=== PATIENT | male | born 1975 | race Caucasian/White ===

== ENCOUNTER 2017-06-22 09:54 | Inpatient (IN) | payer OTHER ==
[2017-06-22 10:18] VITALS: BMI 27.3
--- NOTE | 2017-06-22 12:19 | HP ---
CIWA Score - CIWA Score Nausea/Vomitin-No Nausea/No Vomiting Muscle Tremors: 4-Moderate,w/Arms Extend Anxiety: 4-Mod. Anxious/Guarded Agitation: 4-Moderately Restless Paroxysmal Sweats: 3 Orientation: 0-Oriented Tacttile Disturbances: 0-None Auditory Disturbances: 0-None Visual Disturbances: 0-None Headache: 1-Very Mild CIWA-Ar Total Score: 16 Admission ROS BHS - HPI Chief Complaint: I have problem and need help. Allergies/Adverse Reactions: Allergies Allergy/AdvReac Type Severity Reaction Status Date / Time No Known Allergies Allergy Verified 06/22/17 10:33 History of Present Illness: pt is a 41yr old male with a history of alcohol dependence only seeking detox for treatment. Exam Limitations: No Limitations - Ebola screening Have you traveled outside of the country in the last 21 days: No Have you had contact with anyone from an Ebola affected area: No Have you been sick,other than usual withdrawal symptoms: No Do you have a fever: No - Review of Systems Constitutional: Chills, Diaphoresis, Night Sweats EENT: reports: No Symptoms Reported Respiratory: reports: No Symptoms reported Cardiac: reports: Syncope (blackout) GI: reports: Poor Appetite, Poor Fluid Intake : reports: No Symptoms Reported Musculoskeletal: reports: No Symptoms Reported Integumentary: reports: Flushing, Sweating Neuro: reports: Tingling, Tremors Endocrine: reports: Excessive Sweating, Flushing, Intolerance to Heat Hematology: reports: No Symptoms Reported Psychiatric: reports: Judgement Intact, Mood/Affect Appropiate, Orientated x3, Agitated, Anxious Other Systems: Reviewed and Negative Patient History - Patient Medical History Hx Anemia: No Hx Asthma: No Hx Chronic Obstructive Pulmonary Disease (COPD): No Hx Cancer: No Hx Cardiac Disorders: No Hx Congestive Heart Failure: No Hx Hypertension: No Hx Hypercholesterolemia: No Hx Pacemaker: No HX Cerebrovascular Accident: No Hx Seizures: No Hx Dementia: No Hx Diabetes: No Hx Gastrointestinal Disorders: No Hx Liver Disease: No Hx Genitourinary Disorders: No Hx Sexually Transmitted Disorders: No Hx Renal Disease (ESRD): No Hx Thyroid Disease: No Hx Human Immunodeficiency Virus (HIV): No (negative) Hx Hepatitis C: No (negative) Hx Depression: Yes Hx Suicide Attempt: No Hx Bipolar Disorder: No Hx Schizophrenia: No - Patient Surgical History Past Surgical History: Yes Other Surgical History: R hand tendon repair x3 in 2005 Anesthesia Reaction: No - PPD History Previous Implant?: Yes Documented Results: Negative w/o proof Implanted On Prior [facility] Admission?: No PPD to be Administered?: Yes - Reproductive History Patient is a Female of Child Bearing Age (11 -55 yrs old): No - Smoking Cessation Smoking history: Never smoked Hx Chewing Tobacco Use: No Initiated information on smoking cessation: No - Substance & Tx. History Hx Alcohol Use: Yes Hx Substance Use: No Substance Use Type: Alcohol Hx Substance Use Treatment: Yes (last detox 2005 in [place] ) - Substances Abused Alcohol Route: Oral Frequency: 3-6 times per week Amount used: 1 pint vodka Age of first use: 16 Date of Last Use: 06/20/17 Family Disease History - Family Disease History Family History: Denies Admission Physical Exam [facility] - Vital Signs Vital Signs: Vital Signs - 24 hr 06/22/17 10:15 Temperature 97.1 F L Pulse Rate 62 Respiratory 20 Rate Blood Pressure 143/84 - Physical General Appearance: Yes: Appropriately Dressed, Moderate Distress, Tremorous, Irritable, Sweating, Anxious HEENTM: Yes: Hearing grossly Normal, Normal Voice Respiratory: Yes: Lungs Clear, Normal Breath Sounds, No Respiratory Distress Neck: Yes: Within Normal Limits Breast: Yes: Within Normal Limits Cardiology: Yes: Regular Rhythm, Regular Rate, S1, S2 Abdominal: Yes: Normal Bowel Sounds, Non Tender, Soft Genitourinary: Yes: Within Normal Limits Back: Yes: Normal Inspection Musculoskeletal: Yes: full range of Motion Extremities: Yes: Normal Capillary Refill, Tremors Neurological: Yes: Fully Oriented, Alert, Normal Response Integumentary: Yes: Normal Color, Diaphoresis Lymphatic: Yes: Within Normal Limits - Diagnostic (1) Alcohol dependence with uncomplicated withdrawal Current Visit: Yes Status: Chronic Cleared for Admission [facility] - Detox or Rehab [facility] Level of Care: Medically Managed Detox Regimen/Protocol: Librium [facility] Breath Alcohol Content Breath Alcohol Content: 0 Urine Drug Screen - Results Drug Screen Negative: Yes
[2017-06-22] MEDS ORDERED: MAGNESIUM HYDROX 2400MG/30ML ORAL SUSPENSION 30 ML CUP PO PRN (12:26)
[2017-06-22] MEDS ORDERED: guaiFENesin/D-METHORPHAN HB 10 ML UNIT-DOSE CUPS PO PRN (12:26)
[2017-06-22] MEDS ORDERED: MENTHOL/PHENOL 1 EACH UD MM PRN (12:26)
[2017-06-22] MEDS ORDERED: MAG HYDROX/AL HYDROX/SIMETH 30 ML UNIT-DOSE CUP PO PRN (12:26)
[2017-06-22] MEDS ORDERED: chlordiazePOXIDE HCL 25 MG CAPSULE PO PRN (12:26)
[2017-06-22] MEDS ORDERED: P-EPHED 60MG/TRIPROLIDI 2.5MG TABLET PO PRN (12:26)
[2017-06-22] MEDS ORDERED: IBUPROFEN 400 MG TABLET (FP) PO PRN (12:26)
[2017-06-22] MEDS ORDERED: LOPERAMIDE HCL 2 MG CAPSULE PO PRN (12:26)
[2017-06-22] MEDS ORDERED: hydrOXYzine PAMOATE 50 MG CAPSULE (FP) PO PRN (12:26)
[2017-06-22] MEDS ORDERED: MAGNESIUM CITRATE 300 ML BOTTLE PO PRN (12:26)
[2017-06-22] MEDS ORDERED: ACETAMINOPHEN 325 MG TABLET (FP) PO PRN (12:26)
[2017-06-22] MEDS ORDERED: chlordiazePOXIDE HCL 25 MG CAPSULE PO ONE (12:55)
--- NOTE | 2017-06-22 14:22 | EKG ---
Test Reason : Blood Pressure : / mmHG Vent. Rate : 064 BPM Atrial Rate : 064 BPM P-R Int : 170 ms QRS Dur : 082 ms QT Int : 412 ms P-R-T Axes : 037 048 032 degrees QTc Int : 425 ms NORMAL SINUS RHYTHM NORMAL ECG NO PREVIOUS ECGS AVAILABLE Confirmed by ELE CONSTANTINO MD ([id number]) on 06/22/2017 2:22:11 PM Referred By: Confirmed By:ELE CONSTANTINO MD
[2017-06-22 16:44] LABS: URINE APPEARANCE CLEAR; URINE BILIRUBIN NEGATIVE (NEGATIVE); URINE BLOOD NEGATIVE (NEGATIVE); URINE COLOR DKYELLOW; URINE GLUCOSE (UA) NEGATIVE (NEGATIVE); URINE KETONE TRACE (NEGATIVE); URINE LEUK ESTERASE NEGATIVE (NEGATIVE); URINE NITRITE NEGATIVE (NEGATIVE); URINE PROTEIN NEGATIVE (NEGATIVE); URINE UROBILINOGEN 4.0 E.U/dl mg/dL (0.2-1.0)
[2017-06-22] MEDS: chlordiazePOXIDE HCL 25 MG CAPSULE PO SCH ×2 (17:09→22:35)
[2017-06-22] MEDS: THIAMINE HCL 100 MG TABLET (FP) PO SCH (22:35)
[2017-06-22] MEDS: diphenhydrAMINE HCL 50 MG CAPSULE PO PRN (22:36)
[2017-06-23] MEDS: chlordiazePOXIDE HCL 25 MG CAPSULE PO SCH ×4 (05:57→22:29)
[2017-06-23 10:15] LABS: MCH 30.7 pg (25.7-33.7); MCHC 33.3 g/dl (32.0-35.9); MEAN CELL VOLUME 92.2 fl (80-96); MEAN PLT VOLUME 9.1 fl (7.5-11.1); PLATELET COUNT 220 K/MM3 (134-434); RDW 13.6 % (11.9-15.9); WHITE BLOOD COUNT 8.2 K/mm3 (4.0-10.0)
[2017-06-23 10:18] LABS: ALBUMIN 4.4 g/dl (3.4-5.0); ALK PHOS 86 U/L (45-117); ANION GAP 10 (8-16); CALCIUM 9.5 mg/dL (8.5-10.1); CO2 29 mmol/L (21-32); CREATININE 0.9 mg/dL (0.7-1.3); GLUCOSE,RANDOM 93 mg/dL (74-106); SGOT/AST 38 U/L (15-37); SGPT/ALT 44 U/L (12-78); TOT PROT 7.8 g/dl (6.4-8.2)
[2017-06-23] MEDS: PRENATAL VITAMINS W/ FOLIC ACID TABLET (FP) PO SCH (10:18)
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
[2017-06-23] MEDS ORDERED: BACITRACIN 0.9 GM PACKET TP SCH (11:45)
[2017-06-23] MEDS: BACITRACIN 0.9 GM PACKET TP SCH ×2 (13:11→22:29)
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
[2017-06-23] MEDS: THIAMINE HCL 100 MG TABLET (FP) PO SCH (22:29)
[2017-06-23] MEDS: diphenhydrAMINE HCL 50 MG CAPSULE PO PRN (22:31)
[2017-06-24] MEDS: chlordiazePOXIDE HCL 25 MG CAPSULE PO SCH ×2 (06:18→11:04)
[2017-06-24] MEDS: BACITRACIN 0.9 GM PACKET TP SCH ×2 (11:03→22:51)
[2017-06-24] MEDS: PRENATAL VITAMINS W/ FOLIC ACID TABLET (FP) PO SCH (11:04)
--- NOTE | 2017-06-24 11:13 | PN ---
[facility] CIWA - CIWA Score Nausea/Vomitin-No Nausea/No Vomiting Muscle Tremors: 4-Moderate,w/Arms Extend Anxiety: 4-Mod. Anxious/Guarded Agitation: 4-Moderately Restless Paroxysmal Sweats: 1-Minimal Palms Moist Orientation: 0-Oriented Tacttile Disturbances: 3-Moderate Itch/Numb/Burn Auditory Disturbances: 0-None Visual Disturbances: 0-None Headache: 0-None Present CIWA-Ar Total Score: 16 BHS Progress Note (SOAP) Subjective: SLIGHT ANXIETY,TREMORS,SWEATS. Objective: 06/24/17 11:16 Vital Signs Temperature 96.6 F L 06/24/17 09:21 Pulse Rate 80 06/24/17 09:21 Respiratory Rate 18 06/24/17 09:21 Blood Pressure 100/74 06/24/17 09:21 O2 Sat by Pulse Oximetry (%) Laboratory Last Values WBC 8.2 K/mm3 (4.0-10.0) 06/23/17 06:00 RBC 4.93 M/mm3 (4.00-5.60) 06/23/17 06:00 Hgb 15.1 GM/dL (11.7-16.9) 06/23/17 06:00 Hct 45.4 % (35.4-49) 06/23/17 06:00 MCV 92.2 fl (80-96) 06/23/17 06:00 MCH 30.7 pg (25.7-33.7) 06/23/17 06:00 MCHC 33.3 g/dl (32.0-35.9) 06/23/17 06:00 RDW 13.6 % (11.9-15.9) 06/23/17 06:00 Plt Count 220 K/MM3 (134-434) 06/23/17 06:00 MPV 9.1 fl (7.5-11.1) 06/23/17 06:00 Sodium 135 mmol/L (136-145) L 06/23/17 06:00 Potassium 4.1 mmol/L (3.5-5.1) 06/23/17 06:00 Chloride 96 mmol/L (98-107) L 06/23/17 06:00 Carbon Dioxide 29 mmol/L (21-32) 06/23/17 06:00 Anion Gap 10 (8-16) 06/23/17 06:00 BUN 12 mg/dL (7-18) 06/23/17 06:00 Creatinine 0.9 mg/dL (0.7-1.3) 06/23/17 06:00 Creat Clearance w eGFR > 60 (>60) 06/23/17 06:00 Random Glucose 93 mg/dL (74-106) 06/23/17 06:00 Calcium 9.5 mg/dL (8.5-10.1) 06/23/17 06:00 Total Bilirubin 2.0 mg/dL (0.2-1.0) H 06/23/17 06:00 AST 38 U/L (15-37) H 06/23/17 06:00 ALT 44 U/L (12-78) 06/23/17 06:00 Alkaline Phosphatase 86 U/L (45-117) 06/23/17 06:00 Total Protein 7.8 g/dl (6.4-8.2) 06/23/17 06:00 Albumin 4.4 g/dl (3.4-5.0) 06/23/17 06:00 Urine Color Dkyellow 06/22/17 15:00 Urine Appearance Clear 06/22/17 15:00 Urine pH 6.0 (5.0-8.0) 06/22/17 15:00 Ur Specific [place] 1.020 (1.005-1.025) 06/22/17 15:00 Urine Protein Negative (NEGATIVE) 06/22/17 15:00 Urine Glucose (UA) Negative (NEGATIVE) 06/22/17 15:00 Urine Ketones Trace (NEGATIVE) H 06/22/17 15:00 Urine Blood Negative (NEGATIVE) 06/22/17 15:00 Urine Nitrite Negative (NEGATIVE) 06/22/17 15:00 Urine Bilirubin Negative (NEGATIVE) 06/22/17 15:00 Urine Urobilinogen 4.0 e.u/dl mg/dL (0.2-1.0) 06/22/17 15:00 Ur Leukocyte Esterase Negative (NEGATIVE) 06/22/17 15:00 RPR Titer Nonreactive (NONREACTIVE) 06/23/17 06:00 Assessment: 06/24/17 11:16 WITHDRAWAL SX Plan: CONTINUE DETOX
[2017-06-24] MEDS: chlordiazePOXIDE 5 MG CAPSULE PO SCH ×2 (17:39→22:51)
[2017-06-24] MEDS: THIAMINE HCL 100 MG TABLET (FP) PO SCH (22:51)
[2017-06-24] MEDS: diphenhydrAMINE HCL 50 MG CAPSULE PO PRN (22:52)
[2017-06-25] MEDS: chlordiazePOXIDE 5 MG CAPSULE PO SCH ×2 (05:30→10:46)
[2017-06-25] MEDS: BACITRACIN 0.9 GM PACKET TP SCH ×2 (10:46→22:33)
[2017-06-25] MEDS: PRENATAL VITAMINS W/ FOLIC ACID TABLET (FP) PO SCH (10:46)
--- NOTE | 2017-06-25 12:49 | PN ---
BHS Progress Note (SOAP) Subjective: SLIGHT ANXIETY,SWEATS. Objective: 06/25/17 12:48 Vital Signs Temperature 96.7 F L 06/25/17 09:56 Pulse Rate 73 06/25/17 09:56 Respiratory Rate 18 06/25/17 09:56 Blood Pressure 119/76 06/25/17 09:56 O2 Sat by Pulse Oximetry (%) Laboratory Last Values WBC 8.2 K/mm3 (4.0-10.0) 06/23/17 06:00 RBC 4.93 M/mm3 (4.00-5.60) 06/23/17 06:00 Hgb 15.1 GM/dL (11.7-16.9) 06/23/17 06:00 Hct 45.4 % (35.4-49) 06/23/17 06:00 MCV 92.2 fl (80-96) 06/23/17 06:00 MCH 30.7 pg (25.7-33.7) 06/23/17 06:00 MCHC 33.3 g/dl (32.0-35.9) 06/23/17 06:00 RDW 13.6 % (11.9-15.9) 06/23/17 06:00 Plt Count 220 K/MM3 (134-434) 06/23/17 06:00 MPV 9.1 fl (7.5-11.1) 06/23/17 06:00 Sodium 135 mmol/L (136-145) L 06/23/17 06:00 Potassium 4.1 mmol/L (3.5-5.1) 06/23/17 06:00 Chloride 96 mmol/L (98-107) L 06/23/17 06:00 Carbon Dioxide 29 mmol/L (21-32) 06/23/17 06:00 Anion Gap 10 (8-16) 06/23/17 06:00 BUN 12 mg/dL (7-18) 06/23/17 06:00 Creatinine 0.9 mg/dL (0.7-1.3) 06/23/17 06:00 Creat Clearance w eGFR > 60 (>60) 06/23/17 06:00 Random Glucose 93 mg/dL (74-106) 06/23/17 06:00 Calcium 9.5 mg/dL (8.5-10.1) 06/23/17 06:00 Total Bilirubin 2.0 mg/dL (0.2-1.0) H 06/23/17 06:00 AST 38 U/L (15-37) H 06/23/17 06:00 ALT 44 U/L (12-78) 06/23/17 06:00 Alkaline Phosphatase 86 U/L (45-117) 06/23/17 06:00 Total Protein 7.8 g/dl (6.4-8.2) 06/23/17 06:00 Albumin 4.4 g/dl (3.4-5.0) 06/23/17 06:00 Urine Color Dkyellow 06/22/17 15:00 Urine Appearance Clear 06/22/17 15:00 Urine pH 6.0 (5.0-8.0) 06/22/17 15:00 Ur Specific [place] 1.020 (1.005-1.025) 06/22/17 15:00 Urine Protein Negative (NEGATIVE) 06/22/17 15:00 Urine Glucose (UA) Negative (NEGATIVE) 06/22/17 15:00 Urine Ketones Trace (NEGATIVE) H 06/22/17 15:00 Urine Blood Negative (NEGATIVE) 06/22/17 15:00 Urine Nitrite Negative (NEGATIVE) 06/22/17 15:00 Urine Bilirubin Negative (NEGATIVE) 06/22/17 15:00 Urine Urobilinogen 4.0 e.u/dl mg/dL (0.2-1.0) 06/22/17 15:00 Ur Leukocyte Esterase Negative (NEGATIVE) 06/22/17 15:00 RPR Titer Nonreactive (NONREACTIVE) 06/23/17 06:00 Assessment: 06/25/17 12:48 WITHDRAWAL SX Plan: CONTINUE DETOX
[2017-06-25] MEDS: chlordiazePOXIDE HCL 10 MG CAPSULE PO SCH ×2 (17:38→22:33)
[2017-06-25] MEDS: THIAMINE HCL 100 MG TABLET (FP) PO SCH (22:33)
[2017-06-25] MEDS: diphenhydrAMINE HCL 50 MG CAPSULE PO PRN (22:34)
[2017-06-26] MEDS: chlordiazePOXIDE HCL 10 MG CAPSULE PO SCH (05:18)
[2017-06-26 10:30] VITALS: BP 134/78; PULSE 85; TEMP 97.4
--- NOTE | 2017-06-26 19:01 | DS ---
[facility] Detox Discharge Summary Admission Date: 06/22/17 Discharge Date: 06/26/17 - History Present History: Alcohol Dependence Additional Comments: PATIENT GOING HOME AFTER DISCHARGE AND WILL ATTEND [facility] PROGRAM ([phone]). PATIENT ADVISED TO FOLLOW-UP THERE FOR AFTERCARE SUPPORT PER DISCHARGE ARRANGEMENT. PATIENT DISCHARGED FROM UNIT IN STABLE MEDICAL CONDITION. Pertinent Past History: Insomnia, Depression. - Physical Exam Results Vital Signs: Vital Signs Temperature 97.4 F L 06/26/17 10:29 Pulse Rate 85 06/26/17 10:29 Respiratory Rate 18 06/26/17 10:29 Blood Pressure 134/78 06/26/17 10:29 O2 Sat by Pulse Oximetry (%) Pertinent Admission Physical Exam Findings: WITHDRAWAL SYMPTOMS. Laboratory Tests 06/22/17 06/23/17 06/23/17 15:00 06:00 06:00 WBC 8.2 RBC 4.93 Hgb 15.1 Hct 45.4 MCV 92.2 MCH 30.7 MCHC 33.3 RDW 13.6 Plt Count 220 MPV 9.1 Sodium 135 L Potassium 4.1 Chloride 96 L Carbon Dioxide 29 Anion Gap 10 BUN 12 Creatinine 0.9 Creat Clearance w eGFR > 60 Random Glucose 93 Calcium 9.5 Total Bilirubin 2.0 H AST 38 H ALT 44 Alkaline Phosphatase 86 Total Protein 7.8 Albumin 4.4 Urine Color Dkyellow Urine Appearance Clear Urine pH 6.0 Ur Specific [place] 1.020 Urine Protein Negative Urine Glucose (UA) Negative Urine Ketones Trace H Urine Blood Negative Urine Nitrite Negative Urine Bilirubin Negative Urine Urobilinogen 4.0 e.u/dl Ur Leukocyte Esterase Negative RPR Titer 06/23/17 06:00 WBC RBC Hgb Hct MCV MCH MCHC RDW Plt Count MPV Sodium Potassium Chloride Carbon Dioxide Anion Gap BUN Creatinine Creat Clearance w eGFR Random Glucose Calcium Total Bilirubin AST ALT Alkaline Phosphatase Total Protein Albumin Urine Color Urine Appearance Urine pH Ur Specific [place] Urine Protein Urine Glucose (UA) Urine Ketones Urine Blood Urine Nitrite Urine Bilirubin Urine Urobilinogen Ur Leukocyte Esterase RPR Titer Nonreactive LABS NOTED. - Treatment Hospital Course: Detox Protocol Followed, Detoxed Safely, Responded well, Discharged Condition Good Patient has Accepted a Rehab Referral to: PATIENT GOING HOME, WILL ATTEND [facility] PROGRAM. - Medication Discharge Medications: Ambulatory Orders NK [No Known Home Medication] 06/22/17 - Diagnosis (1) Abrasion of left knee Status: Acute Qualifiers: Encounter type: subsequent encounter Qualified Code(s): S80.212D - Abrasion, left knee, subsequent encounter (2) Alcohol dependence with uncomplicated withdrawal Status: Acute (3) Insomnia Status: Acute Qualifiers: Insomnia type: unspecified Qualified Code(s): G47.00 - Insomnia, unspecified - AMA Did Patient Leave Against Medical Advice: No
== END 2017-06-26 08:53 | disposition home or self-care (01) | DRG 775 ==
LOC: YASAS 09:54 → Y3N 12:44
PROVIDERS: ADMIT Internal Medicine; ATTEND Internal Medicine
PROC: HZ2ZZZZ Detoxification Services for Substance Abuse Treatment (ICD-10-PCS; principal; 2017-06-22)
DX: F10.230 Alcohol dependence with withdrawal, uncomplicated (principal); G47.00 Insomnia, unspecified; S80.212D Abrasion, left knee, subsequent encounter; X58.XXXD Exposure to other specified factors, subsequent encounter
CPT/HCPCS: 36415; 71020-TC; 80053; 81003; 85027; 86593; 93005; 93010